=== PATIENT | male | born 1960 | race Caucasian/White ===

== ENCOUNTER 2018-11-08 10:58 | Observation (INO) | payer OTHER ==
[~2018-11-08] VITALS: Ht 185.4 cm; Wt 108.9 kg
[2018-11-08] VITALS (10 sets, daily range): BP systolic 88–133; BP diastolic 38–86
[~2018-11-08 10:58] MED LIST: ASPIRIN325 PO; COREG6.25 MG PO; EFFIENT10 MG PO; IBUPROFEN 200200 M1 PO; LIPITOR40 MG PO; LISINOPRIL40 MG PO; LOPRESSOR25 PO; NITROGLYCERIN0.4 MG SUBLING; NORVASC5 MG PO; PAROXETINE HCL20 MG PO; PAXIL10 MG PO; PLAVIX 75 MG TA75 M1 PO; PRILOSEC OTC20 MG PO; SIMVASTATIN40 MG PO; ZIAC 10-6.25 M1 EACH PO
[2018-11-08 11:35] LABS: HEMATOCRIT 43.5 % (42.0-52.0); HEMOGLOBIN 14.8 gm/dL (14.0-18.0); MCH 30.4 pg (26.0-34.0); MCV 89.5 fL (80.0-100.0); MPV 9.2 fl. (7.2-11.1); RBC 4.86 mil/uL (4.50-6.00); RDW-CV 14.7 % (10.5-14.5); WBC 5.9 thou/uL (4.0-11.0)
[2018-11-08 12:06] LABS: APTT 24.5 Seconds (25.0-31.3); PROTIME 10.2 Seconds (9.20-11.50)
[2018-11-08] MEDS ORDERED: PAXIL10 MG PO (12:11)
[2018-11-08 12:24] LABS: ALBUMIN 3.4 g/dL (3.4-5.0); ALKALINE PHOSPHATASE 55 U/L (46-116); ANION GAP 7 mmol/L (7-16); BUN 14 mg/dL (7-18); CALCIUM 8.8 mg/dL (8.5-10.1); CHLORIDE 104 mmol/L (98-107); CO2 29 mmol/L (21-32); CREATININE 1.1 mg/dL (0.6-1.3); GLUCOSE 105 mg/dL (70-99); POTASSIUM 4.1 mmol/L (3.5-5.1); SGOT 18 U/L (15-37); SGPT 23 U/L (30-65); SODIUM 140 mmol/L (136-145); TOTAL BILIRUBIN 0.4 mg/dL (<0.1-1.0); TOTAL PROTEIN 7.3 g/dL (6.4-8.2)
[2018-11-08 12:25] LABS: SERUM ASSESSMENT Clear
[2018-11-08 12:36] LABS: CHOLESTEROL 233 mg/dL (<200); HDL CHOLESTEROL 36 mg/dL (>40); LDL CHOLESTEROL 166 mg/dL (<100); TC:HDL 6.5 Ratio (Not establshd); TRIGLYCERIDE 155 mg/dL (<150); VLDL 31 mg/dL (<40)
--- NOTE | 2018-11-08 15:58 | EKG ---
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1960 Requested By: Napoleon Suarez Order Number: [id number] Alejandra MD: Napoleon Suarez Measurements Intervals [place] Rate: 60 P: 41 [place]: 173 QRS: 20 QRSD: 100 T: 19 QT: 407 QTc: 407 Interpretive Statements Sinus rhythm Abnormal inferior Q waves Compared to ECG 12/25/2015 08:23:56 Inferior Q waves now present Q waves now present Ventricular premature complex(es) no longer present Electronically Signed On 11-08-2018 15:58:52 CDT by Napoleon Suarez [email or web address] <ELECTRONICALLY SIGNED> By: Napoleon Suarez MD, [facility] 11/08/18 1558 1139 1139 Napoleon Suarez MD, [facility] /EPI
--- NOTE | 2018-11-08 16:00 | EKG ---
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1960 Requested By: Napoleon Suarez Order Number: [id number] Alejandra MD: Napoleon Suarez Measurements Intervals [place] Rate: 59 P: 39 [place]: 172 QRS: 41 QRSD: 106 T: -3 QT: 425 QTc: 421 Interpretive Statements Sinus rhythm Borderline T abnormalities, inferior leads Compared to ECG 12/25/2015 08:23:56 T-wave abnormality now present Ventricular premature complex(es) no longer present Myocardial infarct finding no longer present Electronically Signed On 11-08-2018 15:59:59 CDT by Napoleon Suarez [email or web address] <ELECTRONICALLY SIGNED> By: Napoleon Suarez MD, [facility] 11/08/18 1559 1457 1457 Napoleon Suarez MD, [facility] /EPI
--- NOTE | 2018-11-08 16:43 | CARD ---
[address] [address] CARDIAC CATH REPORT Name: MADISON KWON Room: [address] M.RReza#: [id number] Admission: 11/08/18 Attend Phys: Napoleon Suarez MD, Discharge: Date of : 56 Report #: [id number] THIS REPORT FOR: //name// APPROVED REPORT Study performed: 11/08/2018 12:49:26 Patient Details Patient Status: Out-Patient Room #: The patient is a 58 year-old male Event Personnel Napoleon Suarez Fruit Harvest Machine Operator, Jessie Posada RN Spice Grinder, Herber Fontenot (R) Monitor, Francisco Baca MARKETING RECRUITER Scrub, Mary Saeed RN Spice Grinder Procedures Performed Atherectomy w/wo Plasty Sgl RCA and deployment of drug-eluting stent; left heart catheterization left ventriculography and selective coronary arteriography Indication Unstable angina Risk Factors Hypercholesterolemia, Hypertension Previous Procedures/Diagnoses Previous PCI, Previous NE Admission/Lab Medications/Medications given during procedure Aspirin, Platelet Aff. Inhib., Angiomax bolus and infusion Procedure Narrative The patient was brought electively to the Cardiac Catheterization Laboratory and was prepped and draped in a sterile manner. The right femoral was infiltrated with 2% Lidocaine subcutaneous anesthesia. A [place] 6 FR sheath was inserted into the right femoral artery. Coronary angiography was performed using coronary diagnostic catheters. The right coronary system was accessed and visualized with a Diagnostic JR4 catheter. The left coronary system was accessed and visualized with a Diagnostic JL4 catheter. The left ventricle was accessed and visualized with a Diagnostic Straight Pigtail catheter. Left ventricular/Aortic Valve gradient assessed via catheter pullback. Left ventriculogram was [place] [address] CARDIAC CATH REPORT Name: MADISON KWON Room: [address] Mandi#: [id number] Admission: 11/08/18 Attend Phys: Napoleon Suarez MD, Discharge: Date of : 56 Report #: [id number] Pre-demployment femoral angiogram was performed . Closure device was deployed with a Fr Angioseal STS 6Fr. The patient tolerated the procedure well and there were no complications associated with the procedure. There was no hematoma. Intraoperative Conscious Sedation Sedation start time: 13:19 Case end Time: 14:20 Fentanyl 100 mcg Versed 4 mg Fluoro Time: 18.0 minutes Dose: DAP [id number] cGycm2 3121 mGy Contrast Type and Amount: Visipaque 240 ml Coronary Angiography The patient's coronary anatomy is right dominant. Diagnostic Cath Left Main 0% narrowing LAD 40-50 % tubular proximalmid LAD narrowing with 80% narrowing of a small first diagonal Circumflex 40% first marginal narrowing with 30% mid circumflex narrowing Right Coronary 75% proximal with 90% mid vessel stenosis and 30% distal narrowing Left Ventriculography The left ventricle is normal in size with normal contractility. The left ventricular ejection fraction is estimated to be 50-55%. Left ventricular wall motion abnormalities are present. There is no mitral insufficiency. There is mild inferobasilar hypokinesis Hemodynamics The aortic pressure is 105/61 mmHg with a mean of 80 mmHg. The left ventricular pressure is 106/2 mmHg with a mean of mmHg. The left ventricular end diastolic pressure is 9 mmHg. There was no gradient across the aortic valve upon pullback. PCI Technique Lesion Anticoagulation was achieved with Angiomax. Patient was preloaded with Angiomax IV 16.5 ml. Percutaneous coronary intervention was performed on the mid right coronary artery. The lesion stenosis prior to intervention was 90% with OBED 3 flow. A 6F JR 4.0 Guide Catheter was used to engage the ostium. A IG: ProwaterFlex 180CM Interventional Guidewire [place] [address] CARDIAC CATH REPORT Name: MADISON KWON Room: [address] M.R.#: [id number] Admission: 11/08/18 Attend Phys: Napoleon Suarez MD, Discharge: Date of : 56 Report #: [id number] BALLOON DILATION A Balloon catheter Mini Trek RX 2.0 X 12 was inserted and inflated up to 16.00atm for 12seconds. Additional Inflation: 18.00atm for 9seconds. STENT DEPLOYMENT A drug-eluting stent Xience Faye 3.0X33mm, 3.25x8 xi si was inserted and inflated up to 18, 14atm for 15seconds. Final angiography reveals 10 % stenosis with OBED 3 flow. COMMENTS Lesion modification was performed with a 3.0 x 10 mm angiosculpt scoring balloon inflated to 14-16 dot BALLOON DILATION A Balloon catheter was inserted and inflated up to 14.00atm for 9seconds. Additional Inflation: 18.00atm for 11seconds. Additional Inflation: 22.00atm for 10seconds. PCI Technique Lesion 2 Percutaneous Coronary Intervention was performed on the proximal right coronary artery. Patient was preloaded with Angiomax IV 16.5 ml. Percutaneous coronary intervention was performed on the proximal right coronary artery. A Xience Faye 3.25X8mm Guide Catheter was used to engage the ostium. A IG: ProwaterFlex 180CM Interventional Guidewire was used to cross the lesion. Stent Deployment A drug-eluting stent Xience Faye 3.25X8mm was inserted and inflated up to 15.00atm for 13seconds. Additional Inflation: 17.00atm for 7seconds. Additional Inflation: 12.00atm for 6seconds. Post Stent Deployment Balloon Dilation A Balloon catheter NC Trek RX 3.0 X 12 was inserted and inflated up to 18.00atm for 6seconds. BALLOON DILATION A Balloon catheter AngioSculpt PTCA 3.0 X 10mm was inserted and inflated up to 12.00atm for 17seconds. Additional Inflation: 17.00atm for 21seconds. Additional Inflation: 18.00atm for 23seconds. STENT DEPLOYMENT A drug-eluting stent Xience Faye 3.0X33mm [place] [address] CARDIAC CATH REPORT Name: MADISON KWON Room: [address] Binh.#: [id number] Admission: 11/08/18 Attend Phys: Napoleon Suarez MD, Discharge: Date of : 56 Report #: [id number] up to 16.00atm for 12seconds. Additional Inflation: 20.00atm for 11seconds. POST STENT DEPLOYMENT BALLOON DILATION A Balloon catheter NC Trek RX 3.0 X 12 was inserted and inflated up to 15.00atm for 8seconds. Additional Inflation: 17.00atm for 6seconds. Conclusion #1 significant multivessel coronary artery disease characterized by the following: A 40-50% tubular mid LAD narrowing B 40% narrowing of the first marginal branch of the circumflex with 30% midcircumflex narrowing C dominant right coronary artery with 75% proximal and 90% mid right coronary in-stent restenosis with 30% distal narrowing #2 ejection fraction is estimated at 55% with mild inferobasilar hypokinesis #3 normal left-sided hemodynamics study #4 successful angioplasty atherectomy/atherotomy and deployment of sequential drug-eluting stents at the sites of 75% proximal and 90% mid right coronary stenosis with 10% residual narrowing and OBED-3 flow the distal vessel Recommendations Cardiac Risk Reduction Program Aggressive Medical Therapy Medications Administered Aspirin (any) Prasugrel Diagnostic Cath Approved by: Napoleon Suarez MD Date/Time: 11/08/2018 16:41:19 <ELECTRONICALLY SIGNED> By: Napoleon Suarez MD, FACC 11/08/18 1643 1643 1643Napoleon Suarez MD, FACC /INF
--- NOTE | 2018-11-08 18:39 | NUR ---
PT A/O. TELE TRACKING SR/SB AND ALL VSS ON ROOM AIR. DENIES CP, SOA. RIGHT GROIN CDI, NO HEMATOMA. NEUROVASC CHECKS WNL. INSTRUCTED ON POST CATH CARE. VOIDED X1 SO FAR. EDUCATED ON SAFETY AND PLAN OF CARE. PLEASE SEE ASSESSMENT FOR ADDITIONAL INFORMATION. WILL CONT TO MONITOR
[2018-11-09] VITALS: BP 110/59
[2018-11-09 03:49] LABS: HEMATOCRIT 38.7 % (42.0-52.0); MCH 29.4 pg (26.0-34.0); MCHC 32.8 g/dL (28.0-37.0); MCV 89.5 fL (80.0-100.0); MPV 8.5 fl. (7.2-11.1); RBC 4.32 mil/uL (4.50-6.00); RDW-CV 14.8 % (10.5-14.5); WBC 5.2 thou/uL (4.0-11.0)
[2018-11-09 03:55] LABS: HEMOGLOBIN 12.7 gm/dL (14.0-18.0)
[2018-11-09 04:00] VITALS: BP 108/61
[2018-11-09 04:05] LABS: ALKALINE PHOSPHATASE 49 U/L (46-116); ANION GAP 7 mmol/L (7-16); BUN 14 mg/dL (7-18); CALCIUM 8.1 mg/dL (8.5-10.1); CHLORIDE 106 mmol/L (98-107); CO2 27 mmol/L (21-32); GLUCOSE 103 mg/dL (70-99); POTASSIUM 4.1 mmol/L (3.5-5.1); SGOT 15 U/L (15-37); SGPT 20 U/L (30-65); SODIUM 140 mmol/L (136-145); TOTAL BILIRUBIN 0.3 mg/dL (<0.1-1.0); TOTAL PROTEIN 6.4 g/dL (6.4-8.2); TROPONIN-I LEVEL <0.06 ng/mL (<0.06)
--- NOTE | 2018-11-09 06:54 | NUR ---
RECEIVED REPORT AND ASSUMED CARE AT 1900. VSS. CARDIAC MONITORING IN PLACE. PT DENIES COMPLAINTS OF PAIN. ASSESSMENT COMPLETED CHARTED. PT UP AD SYLVESTER IN ROOM, ON RA. R GROIN SITE CLEAN, INTACT, NO SIGN OF HEMATOMA. BED LOCKED IN LOWEST POSITION, CALL LIGHT WITHIN REACH. HOURLY ROUNDING COMPLETED AND ALL NEEDS MET.
[2018-11-09 08:00] VITALS: BP 130/79
[2018-11-09 09:57] VITALS: BP 130/79
[2018-11-09 10:06] VITALS: BP 130/79
[2018-11-09] MEDS ORDERED: EFFIENT10 MG PO (10:07)
[2018-11-09] MEDS ORDERED: NITROGLYCERIN0.4 MG SUBLING (10:08)
--- NOTE | 2018-11-09 10:48 | NUR ---
PATIENT ALERT AND ORIENTED X4. VSS. SEEN BY GEOLOGY PROFESSOR, OK TO GO HOME. DISCHARGE EDUCATION GIVEN. PT WENT HOME WITH HIS SON.
--- NOTE | 2018-11-09 17:15 | EKG ---
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 : 1960 Requested By: Napoleon Suarez Order Number: [id number] Reading MD: Tr Powell Measurements Intervals [place] Rate: 54 P: 42 [place]: 178 QRS: 41 QRSD: 110 T: 27 QT: 441 QTc: 418 Interpretive Statements Sinus rhythm Abnormal inferior Q waves Compared to ECG 11/08/2018 14:57:46 Inferior Q waves now present Q waves now present T-wave abnormality no longer present Electronically Signed On 11-09-2018 17:15:29 CDT by Tr Powell [email or web address] <ELECTRONICALLY SIGNED> By: Tr Powell MD, FACC 11/09/18 1715 0314 0314 Tr Powell MD, [facility] /EPI
--- NOTE | 2018-11-10 11:08 | D ---
[address] [address] DISCHARGE SUMMARY Name: DOYLEMADISON MURRAY Room: [address] Ann Raymond#: [id number] Admission: 11/08/18 Attend Phys: Napoleon Suarez MD, Discharge: 11/09/18 Date of : 56 Report #: [id number] THIS REPORT FOR: //name// CC: Simone Suarez DATE OF SERVICE: 11/09/2018 FINAL DISCHARGE DIAGNOSES: 1. Unstable angina. 2. Coronary artery disease. 3. Status post percutaneous coronary intervention of the right coronary artery. 4. Remote myocardial infarction. 5. History of syncope. 6. Hypertension. 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 He had prior myocardial infarction in 2016 with stenting of the right coronary artery and subsequently to the LAD and circumflex. Recently, he presented with recrudescence of chest pain following an unstable pattern. In this context, I recommended cardiac catheterization. That study revealed 90% stenosis of the mid LAD with the mid right coronary artery with 75% proximal right coronary artery narrowing. There was modest 40-50% mid LAD narrowing and mild circumflex narrowing. I proceeded with angioplasty, arthrotomy/atherectomy and stenting of the mid right coronary artery with stenting of the proximal right coronary artery with 10% residual narrowing and OBED 3 flow of the distal vessel. The patient did well post-procedurally and there was good hemostasis of the right femoral site of catheterization. Troponin was 0.06 post-procedurally. Sodium 140, potassium 4.1, BUN 14, creatinine 1.0. Hemoglobin 12.7, white blood cell count 5,200 with 209,000 platelets. The patient ambulated in the hallways without difficulty. He was discharged to home on aspirin 81 mg daily, Coreg 12.5 mg b.i.d., Effient 10 mg daily, Norvasc 5 mg daily, Paxil 40 mg daily, Prilosec 20 mg daily, Zestril 40 mg daily and p.r.n. sublingual nitroglycerin. I will plan to see him in followup on 12/18/2018 at our [facility] office. <ELECTRONICALLY SIGNED> By: Napoleon Suarez MD, FACC 11/10/18 1108 1644 1724Napoleon Suarez MD, FACC /nt
== END 2018-11-09 10:48 | disposition home or self-care (01) ==
LOC: M.CL 10:58 → M.TBA-CV 14:46 → M.TBA-ER 14:46 → M.TBA-CV 14:47 → M.2W 16:22
PROVIDERS: ADMIT Internal Medicine
DX: I25.110 Atherosclerotic heart disease of native coronary artery with unstable angina pectoris (principal); I25.2 Old myocardial infarction; I10 Essential (primary) hypertension; E78.00 Pure hypercholesterolemia, unspecified; Z98.61 Coronary angioplasty status

== ENCOUNTER → 2019-01-08 | Outpatient (CLI) | payer OTHER ==
[2019-01-08 14:04] LABS: CHOLESTEROL 156 mg/dL (<200); HDL CHOLESTEROL 41 mg/dL (>40); LDL CHOLESTEROL 84 mg/dL (<100); SERUM ASSESSMENT Clear; TC:HDL 3.8 Ratio (Not establshd); TRIGLYCERIDE 155 mg/dL (<150); VLDL 31 mg/dL (<40)
== END ==
LOC: M.LAB 13:29
PROVIDERS: Internal Medicine
DX: Z01.818 Encounter for other preprocedural examination (principal); M20.11 Hallux valgus (acquired), right foot; E78.00 Pure hypercholesterolemia, unspecified